=== PATIENT | female | born 1990 | race Caucasian/White ===

== ENCOUNTER 2020-01-23 09:32 | Outpatient (CLI) | payer OTHER ==
--- NOTE | 2020-01-23 17:30 | RAD ---
LEFT ANKLE THREE VIEWS: Date: 01-23-2020 FINDINGS: No fracture was evident. The joint surfaces appear smooth. The lateral view shows a small bony densit y on the plantar aspect of the anterior calculus. This is likely to be an accessory ossicle or even a n old injury. It is certainly not recent. IMPRESSION: No acute bony finding. POS: HOME
== END 2020-01-23 09:33 | disposition home or self-care (01) ==
LOC: BURRAD 09:32
PROVIDERS: ATTEND Physician Assistant
DX: M25.472 Effusion, left ankle (principal)

== ENCOUNTER 2020-04-03 23:08 | Emergency (ER) | payer OTHER ==
--- NOTE | 2020-04-04 07:50 | RAD ---
LEFT ELBOW 4 VIEWS: DATE: 04/03/2020. FINDINGS: There is substantial displacement of the fat pads of the elbow indicating a joint effusion. No gross fracture was obvious, though on some of the views there is a question of a lucency in the articular surface of the radial head. Given the amount of joint fluid present, I am suspicious of a radial hea d fracture. I would recommend treating it as such, then re-x-raying this patient in 7-10 days. IMPRESSION: Large joint effusion. Suspicion of radial head fracture. CODE T POS: HOME
== END 2020-04-04 00:50 | disposition home or self-care (01) ==
LOC: BURERS 23:08
DX: S52.122A Displaced fracture of head of left radius, initial encounter for closed fracture (principal); W19.XXXA Unspecified fall, initial encounter
CPT/HCPCS: 29105